=== PATIENT | female | born 1945 | race Caucasian/White ===

== ENCOUNTER 2017-07-01 12:25 | Emergency (ER) | payer MEDICARE, OTHER ==
[~2017-07-01] VITALS: Ht 157.5 cm; Wt 75.0 kg
[2017-07-01 12:46] VITALS: Ht 157.5 cm; Wt 75.0 kg
[2017-07-01] MEDS ORDERED: SOD CHLORIDE 0.9% 1,000 ML IV STA (12:54)
[2017-07-01] MEDS ORDERED: ONDANSETRON 4 MG INJ IV STA (12:54)
[2017-07-01] MEDS ORDERED: FAMOTIDINE 20 MG INJ IV STA (12:54)
[2017-07-01 13:36] LABS: BASOPHIL # 0.1 10^3/ul (0.0-0.1); BASOPHILS % 0.5 % (0.0-2.0); EOSINOPHILS % 0.4 % (0.0-7.0); HEMATOCRIT 39.1 % (37.0-47.0); HEMOGLOBIN 12.9 g/dl (12.0-16.0); LYMPHOCYTES # 1.6 10^3/ul (0.8-2.9); LYMPHOCYTES % 15.1 % (15.0-51.0); MEAN PLATELET VOLUME 10.9 fl (7.4-10.4); MONOCYTE # 0.6 10^3/ul (0.3-0.9); MONOCYTES % 5.3 % (0.0-11.0); NEUTROPHIL # 8.2 10^3/ul (1.6-7.5); NEUTROPHILS % 78.3 % (39.0-77.0); PLATELET COUNT 264 10^3/UL (140-415); RED BLOOD COUNT 4.03 10^6/ul (4.20-5.40); RED CELL DISTRIBUTION WIDTH 11.9 % (11.5-14.5); WHITE BLOOD COUNT 10.5 10^3/ul (4.8-10.8)
[2017-07-01] MEDS ORDERED: ATEN50TA PO (13:42)
[2017-07-01] MEDS ORDERED: IBUP-1542 PO (13:43)
[2017-07-01] MEDS ORDERED: DRON400T2 PO (13:43)
[2017-07-01] MEDS ORDERED: ASPI81TA3 PO (13:43)
[2017-07-01] MEDS ORDERED: SIMV40TA2 PO (13:44)
[2017-07-01] MEDS ORDERED: OXYB10TA6 PO (13:44)
[2017-07-01] MEDS ORDERED: METO5TAB58 PO (13:45)
[2017-07-01] MEDS ORDERED: CHOL400T10 PO (13:45)
[2017-07-01] MEDS ORDERED: GABA300C16 PO (13:46)
[2017-07-01] MEDS ORDERED: FAMO40TA52 PO (13:46)
[2017-07-01] MEDS ORDERED: LORA0.5T PO (13:46)
[2017-07-01 13:54] LABS: ALANINE AMINOTRANSFERASE 25 IU/L (13-69); ALBUMIN 4.1 g/dl (3.3-4.9); ALBUMIN/GLOBULIN RATIO 1.32; ALKALINE PHOSPHATASE 57 IU/L (42-121); ANION GAP 12 (8-16); ASPARTATE AMINO TRANSFERASE 24 IU/L (15-46); BILIRUBIN,INDIRECT 0.6 mg/dl (0-1.1); BILIRUBIN,TOTAL 0.6 mg/dl (0.2-1.3); BLOOD UREA NITROGEN 12 mg/dl (7-20); CALCIUM 9.6 mg/dl (8.4-10.2); CARBON DIOXIDE 24 mmol/L (21-31); CHLORIDE 108 mmol/L (97-110); CREATININE 0.95 mg/dl (0.44-1.00); GLUCOSE 100 mg/dl (70-220); POTASSIUM 4.1 mmol/L (3.5-5.1); SODIUM 140 mmol/L (135-144); TOTAL PROTEIN 7.2 g/dl (6.1-8.1)
[2017-07-01 14:08] LABS: TROPONIN-I < 0.012 ng/ml (0.00-0.12)
[2017-07-01] MEDS ORDERED: PANT40TA3 PO (14:14)
[2017-07-01] MEDS ORDERED: ONDA4TAB14 PO (14:14)
--- NOTE | 2017-07-01 14:24 | ERD ---
ER Documentation Chief Complaint Date/Time DATE: 07/01/17 TIME: 14:23 Chief Complaint BIBA FOR ABD PAIN WITH N/V AND WEAKNESS AND LOW BP ON THE SCENE HPI Patient is a 71-year-old female with gastritis who presents with abdominal pain and weakness. She was brought in by ambulance. She had gastritis diagnosed 6 months ago as well as palpitations. She had an endoscopy done on November 05. She had a colonoscopy done recently. She was on antibiotics as well. The family says that "everything was normal". This morning she felt dizzy and her "eyes became dark". She had epigastric pain at that time which was sharp in nature. Upon review of old medical records this is the patient's first visit to the ER. ROS All systems reviewed and are negative except as per history of present illness. Medications Home Meds Active Scripts Ondansetron (Ondansetron Odt) 4 Mg Tab.rapdis, 4 MG PO Q6H Y for NAUSEA AND/OR VOMITING, #10 TAB Prov:JOE CONTRERAS MD 07/01/17 Pantoprazole* (Protonix*) 40 Mg Tablet.dr, 40 MG PO DAILY, #20 TAB Prov:JOE CONTRERAS MD 07/01/17 Reported Medications Gabapentin* (Gabapentin*) 300 Mg Capsule, 300 MG PO DAILY, #90 CAP 07/01/17 Lorazepam* (Lorazepam*) 0.5 Mg Tablet, 0.5 MG PO HS Y for ANXIETY, TAB 07/01/17 Famotidine* (Famotidine*) 40 Mg Tablet, 40 MG PO HS, #30 TAB 07/01/17 Metoclopramide* (Reglan*) 5 Mg Tablet, 5 MG PO AC MEALS, TAB 07/01/17 Cholecalciferol* (Vitamin D*) 400 Unit Tablet, 400 UNIT PO DAILY, TAB 07/01/17 Simvastatin* (Zocor*) 40 Mg Tablet, 40 MG PO QHS, #30 TAB 07/01/17 Oxybutynin Chloride* (Ditropan* XL) 10 Mg Tab.er.24, 10 MG PO DAILY, TAB.SA 07/01/17 Ibuprofen* (Ibuprofen*) 600 Mg Tablet, 600 MG PO Q6H Y for PAIN, TAB 07/01/17 Aspirin* (Aspirin* Chew) 81 Mg Tab.chew, 81 MG PO DAILY, TAB.CHEW 07/01/17 Dronedarone Hydrochloride* (Multaq*) 400 Mg Tablet, 200 MG PO DAILY, TAB 07/01/17 Atenolol* (Atenolol*) 50 Mg Tablet, 50 MG PO DAILY, #30 TAB 07/01/17 Allergies Allergies: Coded Allergies: No Known Allergy (Unverified , 07/01/17) PMhx/Soc History of Surgery: No Anesthesia Reaction: No Hx Neurological Disorder: No Hx Respiratory Disorders: No Hx Cardiac Disorders: Yes (htn) Hx Psychiatric Problems: No Hx Miscellaneous Medical Probl: Yes (colonoscopy and endoscopy) Hx Alcohol Use: No Hx Substance Use: No Hx Tobacco Use: No Smoking Status: Never smoker FmHx Family History: No diabetes Physical Exam Vitals Vital Signs Date Time Temp Pulse Resp B/P Pulse Ox O2 Delivery O2 Flow Rate FiO2 07/01/17 13:30 71 16 112/55 99 Room Air 07/01/17 12:46 98.3 51 18 123/56 100 Physical Exam Const: No acute distress Head: Atraumatic Eyes: Normal Conjunctiva ENT: Normal External Ears, Nose and Mouth. Neck: Full range of motion..~ No meningismus. Resp: Clear to auscultation bilaterally Cardio: Regular rate and rhythm, no murmurs Abd: Soft, non tender, non distended. Normal bowel sounds Skin: Pale skin Back: No midline or flank tenderness Ext: No cyanosis, or edema Neur: Awake and alert Psych: Normal Mood and Affect Result Diagram: 07/01/17 1315 07/01/17 1315 Results 24 hrs Laboratory Tests Test 07/01/17 13:15 White Blood Count 10.510^3/ul Red Blood Count 4.0310^6/ul Hemoglobin 12.9g/dl Hematocrit 39.1% Mean Corpuscular Volume 97.0fl Mean Corpuscular Hemoglobin 32.0pg Mean Corpuscular Hemoglobin Concent 33.0g/dl Red Cell Distribution Width 11.9% Platelet Count 52012^3/UL Mean Platelet Volume 10.9fl Neutrophils % 78.3% Lymphocytes % 15.1% Monocytes % 5.3% Eosinophils % 0.4% Basophils % 0.5% Nucleated Red Blood Cells % 0.0/100WBC Neutrophils # 8.210^3/ul Lymphocytes # 1.610^3/ul Monocytes # 0.610^3/ul Eosinophils # 0.010^3/ul Basophils # 0.110^3/ul Nucleated Red Blood Cells # 0.010^3/ul Sodium Level 140mmol/L Potassium Level 4.1mmol/L Chloride Level 108mmol/L Carbon Dioxide Level 24mmol/L Anion Gap 12 Blood Urea Nitrogen 12mg/dl Creatinine 0.95mg/dl Glucose Level 100mg/dl Calcium Level 9.6mg/dl Total Bilirubin 0.6mg/dl Direct Bilirubin 0.00mg/dl Indirect Bilirubin 0.6mg/dl Aspartate Amino Transf (AST/SGOT) 24IU/L Alanine Aminotransferase (ALT/SGPT) 25IU/L Alkaline Phosphatase 57IU/L Troponin I < 0.012ng/ml Total Protein 7.2g/dl Albumin 4.1g/dl Globulin 3.10g/dl Albumin/Globulin Ratio 1.32 Lipase 90U/L Current Medications Medications (Trade) Dose Ordered Sig/Devin Route PRN Reason Start Time Stop Time Status Last Admin Dose Admin Sodium Chloride (NS) 1,000 ml @ 1,000 mls/hr Q1H STAT IV 07/01/17 12:54 07/01/17 13:53 DC 07/01/17 13:22 Ondansetron HCl (Zofran Inj) 4 mg ONCE STAT IV 07/01/17 12:54 07/01/17 12:55 DC 07/01/17 13:22 Famotidine (Pepcid Iv) 20 mg ONCE STAT IV 07/01/17 12:54 07/01/17 12:55 DC 07/01/17 13:22 Procedures/MDM EKG read by me: Rate/Rhythm: Sinus bradycardia rate of 56 Intervals: Normal Impression: Bradycardia without ischemia Patient is a 71-year-old female presents with abdominal pain and weakness. She was found to have basically normal laboratory studies and sinus bradycardia on the EKG but no signs of ischemia. At this point I doubt acute coronary syndrome , pancreatitis, cholecystitis, appendicitis, or bowel obstruction. I doubt anemia or serious electrolyte abnormality. I believe outpatient management is appropriate. The patient went to follow-up closely with her primary doctor within 24-48 hours. She can return sooner for any worsening symptoms. The patient understands the plan is okay for discharge at this time. She was provided with copies of her laboratory studies prior to discharge. Departure Diagnosis: Primary Impression: Weakness Additional Impression: Abdominal pain Abdominal location: epigastric Qualified Code: R10.13 - Epigastric pain Condition: Fair Patient Instructions: Abdominal Pain, Weakness, Unk Cause Referrals: Your doctor Additional Instructions: Call your primary care doctor TOMORROW for an appointment during the next 1-2 days.See the doctor sooner or return here if your condition worsens before your appointment time. JOE CONTRERAS MD Jul 01, 2017 14:24
[2017-07-01 14:55] LABS: ADD UMIC YES; UR ASCORBIC ACID NEGATIVE (NEGATIVE); UR BACTERIA FEW /HPF (NONE SEEN); UR BILIRUBIN (Dip) NEGATIVE (NEGATIVE); UR BLOOD (Dip) 2+ mg/dL (NEGATIVE); UR CLARITY CLEAR (CLEAR); UR COLOR STRAW (YELLOW); UR GLUCOSE (Dip) NEGATIVE (NEGATIVE); UR KETONES (Dip) NEGATIVE (NEGATIVE); UR LEUKOCYTE ESTERASE (Dip) 1+ Leu/ul (NEGATIVE); UR NITRITE (Dip) POSITIVE (NEGATIVE); UR RBC 1 /HPF (0-5); UR SPECIFIC GRAVITY (Dip) 1.005 (1.003-1.030); UR TOTAL PROTEIN (Dip) NEGATIVE (NEGATIVE); UR UROBILINOGEN (Dip) NEGATIVE (NEGATIVE)
[2017-07-01 15:08] VITALS: BP 114/60; PULSE 68; RESP 18
[2017-07-02] MEDS ORDERED: CEPH-443 PO (11:26)
== END 2017-07-01 15:09 | disposition home or self-care (01) ==
LOC: E/R 12:25
DX: R53.1 Weakness (principal); R10.13 Epigastric pain; R11.2 Nausea with vomiting, unspecified; I10 Essential (primary) hypertension; Z79.82 Long term (current) use of aspirin
CPT/HCPCS: 80053; 81001; 83690; 84484; 85025; 86850; 86900; 86901; 93005; 96374; 96375; 99284; J2405; J7030

== ENCOUNTER 2017-07-02 08:22 | Emergency (ER) | payer MEDICARE, OTHER ==
[~2017-07-02] VITALS: Ht 165.1 cm; Wt 68.2 kg
[~2017-07-02 08:22] MED LIST: ASPI81TA3 PO; ATEN50TA PO; CHOL400T10 PO; DRON400T2 PO; FAMO40TA52 PO; GABA300C16 PO; IBUP-1542 PO; LORA0.5T PO; METO5TAB58 PO; ONDA4TAB14 PO; OXYB10TA6 PO; PANT40TA3 PO; SIMV40TA2 PO
[2017-07-02 08:25] VITALS: Ht 165.1 cm; Wt 68.2 kg
[2017-07-02] MEDS ORDERED: SOD CHLORIDE 0.9% 500 ML IV STA (08:39)
--- NOTE | 2017-07-02 08:57 | ERD ---
ER Documentation Chief Complaint Date/Time DATE: 07/02/17 TIME: 08:54 Chief Complaint BROUGHT IN VIA EMS DUE TO DIZZINESS, WAS HERE YESTERDAY HPI Patient is a 71-year-old female who presents to the ER with sudden onset, intermittent, moderate lightheadedness since yesterday. The patient reports having intermittent lightheadedness for the last 2 years associated with palpitations and shortness of breath. She also feels diaphoretic during some of these episodes. She denies chest pain. She denies fever, vomiting, focal weakness, numbness, vertigo. Yesterday she states that her vision went dark and she felt like she was almost going to faint. She was seen in the ER at that time and found to have a normal workup. This morning she again had an episode that was more severe. She has an appointment with her primary doctor tomorrow. She also sees a meat carver for an unknown arrhythmia.Patient also complains of chronic epigastric pain attributed to her gastritis. She has had a recent endoscopy and colonoscopy that were unremarkable. Note from yesterday states the patient has recently been on antibiotics, but the patient denies current antibiotics. After initial history, the son informed me that the patient had 2 episodes of sharp chest pain lasting less than 5 seconds yesterday. ROS All systems reviewed and are negative except as per history of present illness. Medications Home Meds Active Scripts Cephalexin* (Keflex*) 500 Mg Capsule, 500 MG PO QID for 7 Days, CAP Prov:JACOB COLES MD 07/02/17 Ondansetron (Ondansetron Odt) 4 Mg Tab.rapdis, 4 MG PO Q6H Y for NAUSEA AND/OR VOMITING, #10 TAB Prov:JOE CONTRERAS MD 07/01/17 Pantoprazole* (Protonix*) 40 Mg Tablet.dr, 40 MG PO DAILY, #20 TAB Prov:JOE CONTRERAS MD 07/01/17 Reported Medications Gabapentin* (Gabapentin*) 300 Mg Capsule, 300 MG PO DAILY, #90 CAP 07/01/17 Lorazepam* (Lorazepam*) 0.5 Mg Tablet, 0.5 MG PO HS Y for ANXIETY, TAB 07/01/17 Famotidine* (Famotidine*) 40 Mg Tablet, 40 MG PO HS, #30 TAB 07/01/17 Metoclopramide* (Reglan*) 5 Mg Tablet, 5 MG PO AC MEALS, TAB 07/01/17 Cholecalciferol* (Vitamin D*) 400 Unit Tablet, 400 UNIT PO DAILY, TAB 07/01/17 Simvastatin* (Zocor*) 40 Mg Tablet, 40 MG PO QHS, #30 TAB 07/01/17 Oxybutynin Chloride* (Ditropan* XL) 10 Mg Tab.er.24, 10 MG PO DAILY, TAB.SA 07/01/17 Ibuprofen* (Ibuprofen*) 600 Mg Tablet, 600 MG PO Q6H Y for PAIN, TAB 07/01/17 Aspirin* (Aspirin* Chew) 81 Mg Tab.chew, 81 MG PO DAILY, TAB.CHEW 07/01/17 Dronedarone Hydrochloride* (Multaq*) 400 Mg Tablet, 200 MG PO DAILY, TAB 07/01/17 Atenolol* (Atenolol*) 50 Mg Tablet, 50 MG PO DAILY, #30 TAB 07/01/17 Allergies Allergies: Coded Allergies: No Known Allergy (Unverified , 07/01/17) PMhx/Soc Past medical history: Gastritis, hiatal hernia, unknown arrhythmia Past surgical history: None Social history: Denies tobacco or alcohol History of Surgery: No Anesthesia Reaction: No Hx Neurological Disorder: No Hx Respiratory Disorders: No Hx Cardiac Disorders: Yes (htn) Hx Psychiatric Problems: No Hx Miscellaneous Medical Probl: Yes (colonoscopy and endoscopy) Hx Alcohol Use: No Hx Substance Use: No Hx Tobacco Use: No Smoking Status: Never smoker FmHx Family History: No coronary disease, No diabetes Physical Exam Vitals Vital Signs Date Time Temp Pulse Resp B/P Pulse Ox O2 Delivery O2 Flow Rate FiO2 07/02/17 13:10 98.7 70 16 99/64 97 Room Air 07/02/17 11:00 98.0 55 16 120/55 100 Room Air 07/02/17 10:25 98.0 52 16 117/46 97 07/02/17 08:25 98.0 54 16 126/64 97 Physical Exam Const: Alert, no acute distress, appears anxious Head: Atraumatic Eyes: Normal Conjunctiva, No pallor, no icterus ENT: Normal External Ears, Nose and Mouth.Mucous membranes moist Neck: Full range of motion..~ No meningismus. Resp: Clear to auscultation bilaterally, No wheezes, no rales Cardio: Bradycardia, regular rhythm, no murmurs Abd: Soft, non tender, non distended. Skin: No petechiae or rashes Back: No midline or flank tenderness Ext: No cyanosis, or edema Neur: Awake and alert, Cranial nerves II through XII intact bilaterally, strength and sensation full in 4 extremities, no pronator drift Psych: Appears anxious Result Diagram: 07/02/17 0912 07/02/17 0912 Results 24 hrs Laboratory Tests Test 07/02/17 09:12 07/02/17 09:44 White Blood Count 11.910^3/ul Red Blood Count 4.2310^6/ul Hemoglobin 13.7g/dl Hematocrit 40.4% Mean Corpuscular Volume 95.5fl Mean Corpuscular Hemoglobin 32.4pg Mean Corpuscular Hemoglobin Concent 33.9g/dl Red Cell Distribution Width 12.2% Platelet Count 87820^3/UL Mean Platelet Volume 11.1fl Neutrophils % 79.1% Lymphocytes % 15.1% Monocytes % 4.5% Eosinophils % 0.3% Basophils % 0.5% Nucleated Red Blood Cells % 0.0/100WBC Neutrophils # 9.410^3/ul Lymphocytes # 1.810^3/ul Monocytes # 0.510^3/ul Eosinophils # 0.010^3/ul Basophils # 0.110^3/ul Nucleated Red Blood Cells # 0.010^3/ul Sodium Level 143mmol/L Potassium Level 4.0mmol/L Chloride Level 109mmol/L Carbon Dioxide Level 23mmol/L Anion Gap 15 Blood Urea Nitrogen 11mg/dl Creatinine 0.98mg/dl Glucose Level 108mg/dl Lactic Acid Level 2.6mmol/L Calcium Level 10.0mg/dl Troponin I < 0.012ng/ml B-Type Natriuretic Peptide 554PG/ML Urine Color YELLOW Urine Clarity SLIGHTLY CLOUDY Urine pH 7.0 Urine Specific [place] 1.004 Urine Ketones NEGATIVEmg/dL Urine Nitrite POSITIVEmg/dL Urine Bilirubin NEGATIVEmg/dL Urine Urobilinogen NEGATIVEmg/dL Urine Leukocyte Esterase 3+Priyank/ul Urine Microscopic RBC 2/HPF Urine Microscopic WBC 80/HPF Urine Bacteria FEW/HPF Urine Hemoglobin 2+mg/dL Urine Glucose NEGATIVEmg/dL Urine Total Protein NEGATIVEmg/dl Current Medications Medications (Trade) Dose Ordered Sig/Devin Route PRN Reason Start Time Stop Time Status Last Admin Dose Admin Sodium Chloride (NS) 500 ml @ 500 mls/hr Q1H STAT IV 07/02/17 08:39 07/02/17 09:38 DC 07/02/17 09:19 Pantoprazole (Protonix Tab) 40 mg ONCE ONCE PO 07/02/17 10:30 07/02/17 10:31 DC 07/02/17 10:15 Acetaminophen 650 mg 650 mg ONCE ONCE PO 07/02/17 10:30 07/02/17 10:31 DC 07/02/17 10:18 Ceftriaxone Sodium 50 ml @ 100 mls/hr ONCE ONCE IVPB 07/02/17 10:30 07/02/17 10:59 DC 07/02/17 10:32 Sodium Chloride (NS) 500 ml @ 500 mls/hr Q1H ONCE IV 07/02/17 11:00 07/02/17 11:59 DC 07/02/17 11:23 Ondansetron HCl (Zofran Inj) 4 mg ONCE STAT IV 07/02/17 11:04 07/02/17 11:05 DC 07/02/17 11:23 Metoclopramide HCl (Reglan) 10 mg ONCE ONCE IV 07/02/17 12:30 07/02/17 12:31 DC 07/02/17 12:07 Lorazepam (Ativan) 0.5 mg ONCE ONCE IV 07/02/17 12:30 07/02/17 12:31 DC 07/02/17 12:11 Procedures/MDM EKG read by me: Time 856, rate 50 Rhythm: Sinus bradycardia [place]: Normal Intervals: Normal ST-T waves: no ischemic changes Ectopy: No Q-waves: No Impression: Sinus bradycardia, no evidence of ischemia or infarct MDM: Patient is a 71-year-old female who presents to the ER with lightheadedness and generalized weakness. The patient was seen in the ER yesterday and had unremarkable labs. The urinalysis had a positive nitrate but few leukocytes at that time. The patient has not had fever or vomiting. The patient's son reports that she is complained intermittently about lightheadedness for 2 years, and that it has been worse for the last month. He states that it became acutely worse yesterday, but has been of varying intensity over the last 2 days. The patient's workup today shows clear evidence of UTI and a slightly elevated lactic acid. She does have slightly low diastolic blood pressures, but is well-appearing and has no charanjit hypotension. I have low suspicion for sepsis. Patient was given IV fluids and a dose of Rocephin, tolerated a meal ambulate without difficulty. The patient is taking atenolol for a tachyarrhythmia. I spoke with patient's primary doctor , Dr. Rosa, who stated that the patient has an appointment tomorrow. We agreed with the plan to start the patient on antibiotics and have the patient hold atenolol. Her PMD stated that she would arrange for expedited cardiology appointments to adjust the patient's medications. I suspect that the patient is experiencing acute on chronic lightheadedness due to urinary tract infection in the setting of bradycardia from her beta-jon. Her heart rate went from 50 to mid 60s while in the ER. The patient appeared significantly anxious, and the patient's children also appeared anxious. I counseled them on the importance of outpatient follow-up and appropriate reasons for admission. I advised them on return precautions. Given the patient 's good clinical appearance at the time of discharge, I do not believe that the patient required inpatient care. Patient also complained of shortness of breath but had no tachypnea and no hypoxia. She had a normal chest x-ray and lung exam. Her no features that were concerning for PE or suggestive risk factors. Her son reports that she has had this complaint intermittently for the last 2 years. I suspect that there may be a component of anxiety. Departure Diagnosis: Primary Impression: Urinary tract infection Urinary tract infection type: site unspecified Hematuria presence: without hematuria Qualified Code: N39.0 - Urinary tract infection without hematuria, site unspecified Additional Impressions: Lightheadedness Bradycardia Condition: JACOB Evans MD Jul 02, 2017 08:57
[2017-07-02 09:27] LABS: BASOPHIL # 0.1 10^3/ul (0.0-0.1); BASOPHILS % 0.5 % (0.0-2.0); EOSINOPHILS % 0.3 % (0.0-7.0); HEMATOCRIT 40.4 % (37.0-47.0); HEMOGLOBIN 13.7 g/dl (12.0-16.0); LYMPHOCYTES # 1.8 10^3/ul (0.8-2.9); LYMPHOCYTES % 15.1 % (15.0-51.0); MEAN CORPUSCULAR HEMOGLOBIN 32.4 pg (29.0-33.0); MEAN CORPUSCULAR HGB CONC 33.9 g/dl (32.0-37.0); MEAN CORPUSCULAR VOLUME 95.5 fl (82.0-101.0); MEAN PLATELET VOLUME 11.1 fl (7.4-10.4); MONOCYTE # 0.5 10^3/ul (0.3-0.9); MONOCYTES % 4.5 % (0.0-11.0); NEUTROPHIL # 9.4 10^3/ul (1.6-7.5); NEUTROPHILS % 79.1 % (39.0-77.0); PLATELET COUNT 218 10^3/UL (140-415); RED BLOOD COUNT 4.23 10^6/ul (4.20-5.40); RED CELL DISTRIBUTION WIDTH 12.2 % (11.5-14.5); WHITE BLOOD COUNT 11.9 10^3/ul (4.8-10.8)
--- NOTE | 2017-07-02 09:35 | RADRPT ---
PROCEDURE: XR Chest. CLINICAL INDICATION: Syncope. TECHNIQUE: Single frontal chest x-ray. COMPARISON: None available. FINDINGS: The cardiomediastinal silhouette is unremarkable. Mild bibasilar atelectasis is noted. No pneumothorax, pleural effusion or consolidation is seen. No acute osseous abnormality is noted. IMPRESSION: 1. Mild bibasilar atelectasis. 2. Otherwise no acute cardiopulmonary abnormality. RPTAT: HFN .Niko Edmond MD, Date Time Electronically viewed and signed by .Niko Edmond MD, on 07/02/2017 09:35 .N/
[2017-07-02 09:46] LABS: ANION GAP 15 (8-16); BLOOD UREA NITROGEN 11 mg/dl (7-20); CARBON DIOXIDE 23 mmol/L (21-31); CHLORIDE 109 mmol/L (97-110); CREATININE 0.98 mg/dl (0.44-1.00); GLUCOSE 108 mg/dl (70-220); SODIUM 143 mmol/L (135-144)
[2017-07-02 09:58] LABS: TROPONIN-I < 0.012 ng/ml (0.00-0.12)
[2017-07-02 10:10] LABS: ADD UMIC YES; UR ASCORBIC ACID NEGATIVE (NEGATIVE); UR BACTERIA FEW /HPF (NONE SEEN); UR BILIRUBIN (Dip) NEGATIVE (NEGATIVE); UR BLOOD (Dip) 2+ mg/dL (NEGATIVE); UR CLARITY SLIGHTLY CLOUDY (CLEAR); UR COLOR YELLOW (YELLOW); UR GLUCOSE (Dip) NEGATIVE (NEGATIVE); UR KETONES (Dip) NEGATIVE (NEGATIVE); UR LEUKOCYTE ESTERASE (Dip) 3+ Leu/ul (NEGATIVE); UR NITRITE (Dip) POSITIVE (NEGATIVE); UR RBC 2 /HPF (0-5); UR SPECIFIC GRAVITY (Dip) 1.004 (1.003-1.030); UR TOTAL PROTEIN (Dip) NEGATIVE (NEGATIVE); UR UROBILINOGEN (Dip) NEGATIVE (NEGATIVE)
[2017-07-02] MEDS ORDERED: PANTOPRAZOLE (EC) 40 MG TAB PO ONE (10:30)
[2017-07-02] MEDS ORDERED: CEFTRIAXONE 1 GM/50 ML (PMX) 50 ML IVPB ONE (10:30)
[2017-07-02] MEDS ORDERED: ACETAMINOPHEN 325 MG TAB PO ONE (10:30)
[2017-07-02] MEDS ORDERED: SOD CHLORIDE 0.9% 500 ML IV ONE (11:00)
[2017-07-02] MEDS ORDERED: ONDANSETRON 4 MG INJ IV STA (11:04)
[2017-07-02] MEDS ORDERED: CEPH-443 PO (11:26)
[2017-07-02] MEDS ORDERED: METOCLOPRAMIDE 10 MG INJ IV ONE (12:30)
[2017-07-02] MEDS ORDERED: LORAZEPAM 2 MG INJ IV ONE (12:30)
[2017-07-02 13:10] VITALS: BP 99/64; PULSE 70; RESP 16; TEMP 98.7
== END 2017-07-02 13:30 | disposition home or self-care (01) ==
LOC: E/R 08:22
DX: N39.0 Urinary tract infection, site not specified (principal); R00.1 Bradycardia, unspecified; I10 Essential (primary) hypertension; Z79.82 Long term (current) use of aspirin
CPT/HCPCS: 71010; 80048; 81001; 83605; 83880; 84484; 85025; 87086; 93005; 96374; 96375; 99285; J0696; J2060; J2405; J2765; J7040

== ENCOUNTER 2018-06-03 06:09 | Emergency (ER) | END 2018-06-03 08:22 | disposition home or self-care (01) ==